=== PATIENT | female | born 1995 | race African-American/Black ===

== ENCOUNTER 2020-05-16 09:41 | Inpatient (IN) | payer MEDICAID ==
[~2020-05-16] VITALS: Ht 165.1 cm; Wt 65.2 kg
[2020-05-16 10:00] VITALS: BP_SYST 117; BP_SYST 140; BP_DIAS 70; BP_DIAS 88
[2020-05-16] MEDS ORDERED: fentaNYL 100 mcg/2 mL IV ONE (10:00)
[2020-05-16] MEDS ORDERED: Omnipaque-300 100ml vial INJ PRN (10:00)
--- NOTE | 2020-05-16 10:00 | Emergency Room Report ---
History of Present Illness General Chief Complaint: Abdominal Pain Source: Patient Present Illness HPI Patient is a 24-year-old female denies any significant past medical history who presents to the ER complaining of abdominal pain for 2 days. She complains of nausea but denies any vomiting. She also complains of some dysuria. She denies any diarrhea. She states that her last menstrual period was about 10 days ago. She denies any fever or chills. Allergies: Coded Allergies: No Known Allergies (Unverified , 05/16/20) COVID-19 Screening Contact w/high risk pt: No Experienced COVID-19 symptoms?: No COVID-19 Testing performed ACCOUNTANCY PROFESSOR: No Patient History Last Menstrual Period: 05/04/20 Now: No Reviewed Nursing Documentation: PMH: Agreed; PSxH: Agreed Nursing Documentation-PMH Past Medical History: No Stated History Review of Systems All Other Systems: negative except mentioned in HPI Physical Exam Vital Signs Date Time Temp Pulse Resp B/P (MAP) Pulse Ox O2 Delivery O2 Flow Rate FiO2 05/16/20 09:54 97.5 78 18 117/70 (86) 98 Room Air Sp02 EP Interpretation: reviewed, normal General Appearance: alert, GCS 15, non-toxic, mild distress Head: normocephalic, atraumatic Eyes: bilateral eye normal inspection, bilateral eye PERRL ENT: hearing grossly normal, normal pharynx, no angioedema, normal voice Neck: full range of motion, supple/symm/no masses Respiratory: normal breath sounds, no respiratory distress, no accessory muscle use Cardiovascular #1: regular rate, rhythm Gastrointestinal: soft, no guarding, no rebound, other - Periumbilical tenderness to palpation Rectal: deferred Genitourinary: no CVA tenderness Musculoskeletal: moves extm spontaneously Neurologic: feeder loader III-XII nml as tested, oriented x3 Psychiatric: no suicidal/homicidal ideation Skin: no rash Lymphatic: no adenopathy Medical Decision Making Diagnostic Impression: Primary Impression: Acute appendicitis Additional Impression: UTI (urinary tract infection) ER Course Patient reevaluated at 10:40 AM. Patient has been given 1 L of IV fluids, 50 mcg of IV fentanyl, 20 mg of IV Pepcid and 4 mg of IV Zofran. She states that her pain has improved. She looks much more comfortable. UA is positive. I have ordered for 1 g of Rocephin. Patient is pending CT abdomen pelvis. CT demonstrates "Appendix is borderline in caliber, measuring up to 7 mm. Distal fecalith. No clear periappendiceal inflammatory changes, but there is little adjacent fat to illustrate such changes. Overall, exam is equivocal for appendicitis." Paging Dr. Wade who is on-call for general surgery. I spoke with the surgeon he states that he recommends observing the patient. I have ordered for Invanz and preop the patient. I updated the patient on all of our ER findings and plan at 11:50 AM. Patient is amenable to admission. Dr. donohue consult on the patient in the emergency room. Patient is being admitted to Laboratory Tests Test 05/16/20 10:00 White Blood Count 19.1 K/UL (4.8-10.8) H Red Blood Count 4.45 M/UL (4.20-5.40) Hemoglobin 10.1 G/DL (12.0-16.0) L Hematocrit 33.3 % (37.0-47.0) L Mean Corpuscular Volume 75 FL (80-99) L Mean Corpuscular Hemoglobin 22.8 PG (27.0-31.0) L Mean Corpuscular Hemoglobin Concent 30.5 G/DL (32.0-36.0) L Red Cell Distribution Width 16.4 % (11.6-14.8) H Platelet Count 292 K/UL (150-450) Mean Platelet Volume 7.8 FL (6.5-10.1) Neutrophils (%) (Auto) % (45.0-75.0) Lymphocytes (%) (Auto) % (20.0-45.0) Monocytes (%) (Auto) % (1.0-10.0) Eosinophils (%) (Auto) % (0.0-3.0) Basophils (%) (Auto) % (0.0-2.0) Differential Total Cells Counted 100 Neutrophils % (Manual) 80 % (45-75) H Lymphocytes % (Manual) 9 % (20-45) L Monocytes % (Manual) 9 % (1-10) Eosinophils % (Manual) 2 % (0-3) Basophils % (Manual) 0 % (0-2) Band Neutrophils 0 % (0-8) Platelet Estimate Adequate Platelet Morphology Normal Hypochromasia 1+ Anisocytosis 1+ Microcytosis 1+ Urine Color Yellow Urine Appearance Slightly cloudy Urine pH 6 (4.5-8.0) Urine Specific [place] 1.020 (1.005-1.035) Urine Protein 2+ (NEGATIVE) H Urine Glucose (UA) Negative (NEGATIVE) Urine Ketones 4+ (NEGATIVE) H Urine Blood 2+ (NEGATIVE) H Urine Nitrite Negative (NEGATIVE) Urine Bilirubin Negative (NEGATIVE) Urine Urobilinogen Normal MG/DL (0.0-1.0) Urine Leukocyte Esterase 3+ (NEGATIVE) H Urine RBC 0-2 /HPF (0 - 2) Urine WBC 15-20 /HPF (0 - 2) H Urine Squamous Epithelial Cells Moderate /LPF (NONE/OCC) H Urine Bacteria Few /HPF (NONE) Urine HCG, Qualitative Negative (NEGATIVE) Sodium Level 135 MMOL/L (136-145) L Potassium Level 3.5 MMOL/L (3.5-5.1) Chloride Level 101 MMOL/L (98-107) Carbon Dioxide Level 24 MMOL/L (21-32) Anion Gap 10 mmol/L (5-15) Blood Urea Nitrogen 9 mg/dL (7-18) Creatinine 0.9 MG/DL (0.55-1.30) Estimated Glomerular Filtration Rate > 60 mL/min (>60) Glucose Level 69 MG/DL (74-106) L Calcium Level 9.7 MG/DL (8.5-10.1) Magnesium Level 2.0 MG/DL (1.8-2.4) Total Bilirubin 0.6 MG/DL (0.2-1.0) Aspartate Amino Transferase (AST) 20 U/L (15-37) Alanine Aminotransferase (ALT) 16 U/L (12-78) Alkaline Phosphatase 85 U/L (46-116) Total Protein 8.3 G/DL (6.4-8.2) H Albumin 3.7 G/DL (3.4-5.0) Globulin 4.6 g/dL Albumin/Globulin Ratio 0.8 (1.0-2.7) L Lipase 67 U/L (73-393) L Urine Opiates Screen Negative (NEGATIVE) Urine Barbiturates Screen Negative (NEGATIVE) Phencyclidine (PCP) Screen Negative (NEGATIVE) Urine Amphetamines Screen Negative (NEGATIVE) Urine Benzodiazepines Screen Negative (NEGATIVE) Urine Cocaine Screen Negative (NEGATIVE) Urine Marijuana (THC) Screen Positive (NEGATIVE) H EKG Diagnostic Results Troponin ordered: No - Preop EKG Time: 12:16 EP Interpretation: Radha Meyer MD Rate: normal - 88 bpm Rhythm: NSR ST Segments: no acute changes ASA given to the pt in ED: No Chest X-Ray Diagnostic Results Chest X-Ray Diagnostic Results : Chest X-Ray Ordered: Yes # of Views/Limited/Complete: 1 View Indication: Other - pre-op EP Interpretation: Yes Interpretation: no consolidation, no effusion, no pneumothorax, no acute cardiopulmonary disease Impression: No acute disease Electronically Signed by: Radha Meyer MD Last Vital Signs Date Time Temp Pulse Resp B/P (MAP) Pulse Ox O2 Delivery O2 Flow Rate FiO2 05/16/20 09:58 78 18 Room Air 05/16/20 09:54 97.5 117/70 (86) 98 Disposition: ADMITTED INPATIENT Condition: Critical Physician Consult: Dr. Lizbeth MD at 130pm Additional Instructions: Please note that this report is being documented using [employer] technology. This can lead to erroneous entry secondary to incorrect interpretation by the dictating instrument. Radha Meyer M.D. May 16, 2020 10:00
--- NOTE | 2020-05-16 10:01 | NUR ---
came to er complaints of abdominal pain x 2 days with nausea no vomiting or diarhea
[2020-05-16 10:20] LABS: APPEARANCE,URINE SLIGHTLY CLOUDY; BILIRUBIN, URINE NEGATIVE (NEGATIVE); GLUCOSE, URINE (UA) NEGATIVE (NEGATIVE); KETONES,URINE 4+ (NEGATIVE); LEUKOCYTE ESTERASE ,URINE 3+ (NEGATIVE); NITRITE,URINE NEGATIVE (NEGATIVE); PH,URINE 6 (4.5-8.0); PROTEIN,URINE 2+ (NEGATIVE); UROBILINOGEN,URINE NORMAL MG/DL (0.0-1.0)
[2020-05-16 10:24] LABS: ANION GAP 10 mmol/L (5-15); BLOOD UREA NITROGEN 9 mg/dL (7-18); CALCIUM 9.7 MG/DL (8.5-10.1); CARBON DIOXIDE 24 MMOL/L (21-32); CHLORIDE 101 MMOL/L (98-107); CREATININE 0.9 MG/DL (0.55-1.30); POTASSIUM 3.5 MMOL/L (3.5-5.1); SODIUM 135 MMOL/L (136-145)
[2020-05-16 10:28] LABS: COLOR,URINE YELLOW
[2020-05-16 10:30] LABS: ALANINE AMINOTRANSFERASE 16 U/L (12-78); ALBUMIN 3.7 G/DL (3.4-5.0); ALBUMIN/GLOBULIN RATIO 0.8 (1.0-2.7); ALKALINE PHOSPHATASE 85 U/L (46-116); ASPARTATE AMINO TRANSFERASE 20 U/L (15-37); BILIRUBIN,TOTAL 0.6 MG/DL (0.2-1.0)
[2020-05-16 10:37] LABS: HEMATOCRIT 33.3 % (37.0-47.0); HEMOGLOBIN 10.1 G/DL (12.0-16.0); MEAN CORPUSCULAR VOLUME 75 FL (80-99); PLATELET COUNT 292 K/UL (150-450); RED BLOOD COUNT 4.45 M/UL (4.20-5.40); RED CELL DISTRIBUTION WIDTH 16.4 % (11.6-14.8); WHITE BLOOD COUNT 19.1 K/UL (4.8-10.8)
[2020-05-16] MEDS ORDERED: cefTRIAXone 1 GM in NS 55 ML IVPB ONE (10:45)
--- NOTE | 2020-05-16 11:33 | Diagnostic Imaging Report ---
EXAM: CT Abdomen and Pelvis With Intravenous Contrast CLINICAL HISTORY: PAIN TECHNIQUE: Axial computed tomography images of the abdomen and pelvis with intravenous contrast. CTDI is 3.8 mGy and DLP is 200.4 mGy-cm. One or more of the following dose reduction techniques were used: automated exposure control, adjustment of the mA and/or kV according to patient size, use of iterative reconstruction technique. COMPARISON: No relevant prior studies available. FINDINGS: Lung bases: Unremarkable. No mass. No consolidation. ABDOMEN: Liver: Unremarkable. No mass. Gallbladder and bile ducts: Unremarkable. No calcified stones. No ductal dilation. Pancreas: Unremarkable. No mass. No ductal dilation. Spleen: Unremarkable. No splenomegaly. Adrenals: Unremarkable. No mass. Kidneys and ureters: Upper pole left renal hypodensities that are too small to characterize, but most likely reflect cysts. No hydronephrosis. Stomach and bowel: No obstruction or perforation. PELVIS: Appendix: Borderline in caliber measuring up to 7 mm in diameter. Distal fecalith. No clear periappendiceal inflammatory changes, but there is little adjacent fat to illustrate such changes. Bladder: Unremarkable. No mass. Reproductive: 1.1 cm cystic lesion to the rightward vaginal introitus, consistent with Bartholin cyst. ABDOMEN and PELVIS: Intraperitoneal space: Unremarkable. No free air. No significant fluid collection. Bones/joints: No acute fracture. No dislocation. Soft tissues: Unremarkable. Vasculature: Unremarkable. No abdominal aortic aneurysm. Lymph nodes: Unremarkable. No enlarged lymph nodes. IMPRESSION: Appendix is borderline in caliber, measuring up to 7 mm. Distal fecalith. No clear periappendiceal inflammatory changes, but there is little adjacent fat to illustrate such changes. Overall, exam is equivocal for appendicitis. Upper pole left renal hypodensities are too small to characterize, but most likely reflect cysts. No hydronephrosis. 1.1 cm Bartholin cyst to the rightward vaginal introitus.
[2020-05-16] MEDS ORDERED: Ertapenem 1 GM in NS 55 ML IV ONE (11:45)
--- NOTE | 2020-05-16 12:33 | Diagnostic Imaging Report ---
EXAM: XR Chest, 1 View CLINICAL HISTORY: PREOP TECHNIQUE: Frontal view of the chest. COMPARISON: No relevant prior studies available. FINDINGS: Lungs: Unremarkable. No consolidation. Pleural space: Unremarkable. No pneumothorax. Heart: Unremarkable. No cardiomegaly. Mediastinum: Unremarkable. Bones/joints: Unremarkable. IMPRESSION: No evidence of acute pulmonary disease.
[2020-05-16 13:15] LABS: INR 1.2 (0.9-1.1)
--- NOTE | 2020-05-16 13:35 | Consultation ---
History of Present Illness General Date patient seen: May 16, 2020 Reason for Hospitalization: Abdominal Pain Present Illness HPI 24F acute onset of lower abdominal periumbilical pelvic pain starting yesterday with associated nausea. no emesis. normal bm. +flatus. pain yesterday 8/10 today 6.5/10. feels better. but given persistent came in for evaluation. noted to have midline lower abdomen pain, LLQ and RLQ pain. wbc 19k. uti. ct with equivocal appendicitis 7mm. no inflammation or stranding noted. fecalith. surgery called to evaluate. seen in ED Allergies: Coded Allergies: No Known Allergies (Unverified , 05/16/20) COVID-19 Screening Contact w/high risk pt: No Experienced COVID-19 symptoms?: No Patient History History Provided By: Patient, Medical Record, PMD Healthcare decision maker Resuscitation status Advanced Directive on File Past Medical/Surgical History Past Medical/Surgical History: (1) UTI (urinary tract infection) (2) Acute appendicitis Review of Systems Review of Symptoms General ROS: no weight loss or fever Psychological ROS: no depression or mood changes, no memory loss Ophthalmic ROS: no visual changes or eye irritation ENT ROS: no nasal congestion, hearing loss, dizziness Allergy and Immunology ROS: no allergic symptoms or urticaria Hematological and Lymphatic ROS: no swollen glands, unusual bleeding or bruising Endocrine ROS: no polyuria, polydipsia, weight changes, temperature intolerance Respiratory ROS: no cough, shortness of breath, or wheezing Cardiovascular ROS: no chest pain or dyspnea on exertion Gastrointestinal ROS: +lower abdominal pain, no bright red blood in stool. Musculoskeletal ROS: no myalgias or arthralgias Neurological ROS: no TIA or stroke symptoms Dermatological ROS: no new or changing skin lesions, rashes or pruritis Physical Exam Physical Exam General appearance: alert, cooperative, no distress, appears stated age Head: Normocephalic, without obvious abnormality, atraumatic Eyes: conjunctivae/corneas clear. PERRL, EOM's intact. Fundi benign Throat: Lips, mucosa, and tongue normal. Teeth and gums normal Neck: supple, symmetrical, trachea midline, no adenopathy, thyroid: not enlarged, symmetric, no tenderness/mass/nodules, no carotid bruit and no JVD Lungs: clear to auscultation bilaterally Heart: regular rate and rhythm, S1, S2 normal, no murmur, click, rub or gallop Abdomen: soft, lower abdominal discomfort, RLQ, midline, LLQ-tender. Bowel sounds normal. No masses, no organomegaly Extremities: extremities normal, atraumatic, no cyanosis or edema Pulses: 2+ and symmetric Skin: Skin color, texture, turgor normal. No rashes or lesions Neurologic: Grossly normal Last 24 Hour Vital Signs Date Time Temp Pulse Resp B/P (MAP) Pulse Ox O2 Delivery O2 Flow Rate FiO2 05/16/20 10:00 97.5 18 117/70 98 Room Air 05/16/20 10:00 99.3 100 18 140/88 100 Room Air 05/16/20 09:58 78 18 Room Air 05/16/20 09:54 97.5 78 18 117/70 (86) 98 Room Air Laboratory Tests Test 05/16/20 10:00 White Blood Count 19.1 K/UL (4.8-10.8) H Red Blood Count 4.45 M/UL (4.20-5.40) Hemoglobin 10.1 G/DL (12.0-16.0) L Hematocrit 33.3 % (37.0-47.0) L Mean Corpuscular Volume 75 FL (80-99) L Mean Corpuscular Hemoglobin 22.8 PG (27.0-31.0) L Mean Corpuscular Hemoglobin Concent 30.5 G/DL (32.0-36.0) L Red Cell Distribution Width 16.4 % (11.6-14.8) H Platelet Count 292 K/UL (150-450) Mean Platelet Volume 7.8 FL (6.5-10.1) Neutrophils (%) (Auto) % (45.0-75.0) Lymphocytes (%) (Auto) % (20.0-45.0) Monocytes (%) (Auto) % (1.0-10.0) Eosinophils (%) (Auto) % (0.0-3.0) Basophils (%) (Auto) % (0.0-2.0) Differential Total Cells Counted 100 Neutrophils % (Manual) 80 % (45-75) H Lymphocytes % (Manual) 9 % (20-45) L Monocytes % (Manual) 9 % (1-10) Eosinophils % (Manual) 2 % (0-3) Basophils % (Manual) 0 % (0-2) Band Neutrophils 0 % (0-8) Platelet Estimate Adequate Platelet Morphology Normal Hypochromasia 1+ Anisocytosis 1+ Microcytosis 1+ Prothrombin Time 13.0 SEC (9.30-11.50) H Prothromb Time International Ratio 1.2 (0.9-1.1) H Activated Partial Thromboplast Time 32 SEC (23-33) Urine Color Yellow Urine Appearance Slightly cloudy Urine pH 6 (4.5-8.0) Urine Specific [place] 1.020 (1.005-1.035) Urine Protein 2+ (NEGATIVE) H Urine Glucose (UA) Negative (NEGATIVE) Urine Ketones 4+ (NEGATIVE) H Urine Blood 2+ (NEGATIVE) H Urine Nitrite Negative (NEGATIVE) Urine Bilirubin Negative (NEGATIVE) Urine Urobilinogen Normal MG/DL (0.0-1.0) Urine Leukocyte Esterase 3+ (NEGATIVE) H Urine RBC 0-2 /HPF (0 - 2) Urine WBC 15-20 /HPF (0 - 2) H Urine Squamous Epithelial Cells Moderate /LPF (NONE/OCC) H Urine Bacteria Few /HPF (NONE) Urine HCG, Qualitative Negative (NEGATIVE) Sodium Level 135 MMOL/L (136-145) L Potassium Level 3.5 MMOL/L (3.5-5.1) Chloride Level 101 MMOL/L (98-107) Carbon Dioxide Level 24 MMOL/L (21-32) Anion Gap 10 mmol/L (5-15) Blood Urea Nitrogen 9 mg/dL (7-18) Creatinine 0.9 MG/DL (0.55-1.30) Estimat Glomerular Filtration Rate > 60 mL/min (>60) Glucose Level 69 MG/DL (74-106) L Calcium Level 9.7 MG/DL (8.5-10.1) Magnesium Level 2.0 MG/DL (1.8-2.4) Total Bilirubin 0.6 MG/DL (0.2-1.0) Aspartate Amino Transf (AST/SGOT) 20 U/L (15-37) Alanine Aminotransferase (ALT/SGPT) 16 U/L (12-78) Alkaline Phosphatase 85 U/L (46-116) Total Protein 8.3 G/DL (6.4-8.2) H Albumin 3.7 G/DL (3.4-5.0) Globulin 4.6 g/dL Albumin/Globulin Ratio 0.8 (1.0-2.7) L Lipase 67 U/L (73-393) L Urine Opiates Screen Negative (NEGATIVE) Urine Barbiturates Screen Negative (NEGATIVE) Phencyclidine (PCP) Screen Negative (NEGATIVE) Urine Amphetamines Screen Negative (NEGATIVE) Urine Benzodiazepines Screen Negative (NEGATIVE) Urine Cocaine Screen Negative (NEGATIVE) Urine Marijuana (THC) Screen Positive (NEGATIVE) H Height (Feet): 5 Height (Inches): 5.00 Weight (Pounds): 160 Medications Current Medications Medications (Trade) Dose Ordered Sig/Yemi Route PRN Reason Start Time Stop Time Status Last Admin Dose Admin Iohexol (OMNIPAQUE-300 100ml) 100 ml NOW PRN INJ Radiology Procedure 05/16/20 10:00 05/18/20 09:59 Assessment/Plan Problem List: (1) UTI (urinary tract infection) ICD Codes: N39.0 - Urinary tract infection, site not specified SNOMED: 65221745 (2) Acute appendicitis Assessment & Plan: 24F possible appendicitis. afebrile, HD stable. wbc 19k. uti. LLQ, midline lower abd, and RLQ discomfort on deep palpation no peritonitis. CT reviewed. long discussion with patient at bedside. clinical condition, labs, and ct reviewed. exam reviewed. when standing and moving no pain. no peritoneal signs. possible early acute appy but not definitive. discussed diagnostic laparoscopy with patient discussed serial abdominal exams decided to monitor clinically for next 24h. if not resolved will plan for diagnostic laparoscopy possible appendectomy. if resolved will monitor non operatively thank you will follow with recs and exam am labs ICD Codes: K35.80 - Unspecified acute appendicitis SNOMED: 81509590 Nabeel Wade May 16, 2020 13:35
[2020-05-16 14:59] VITALS: BP 107/54
--- NOTE | 2020-05-16 15:03 | NUR ---
RT given to pt
--- NOTE | 2020-05-16 15:47 | NUR ---
pt resting comfortably, npo after midnight
--- NOTE | 2020-05-16 20:15 | NUR ---
NURSE NOTES: Received pt & bedside report from GIAN Otoole. Pt in [facility], ambulatory, a&ox4, in room air. No s/s of acute distress & c/o 7/10 pain. WIll give PRN pain med when due. Pt belongings checked & accounted for. Oriented pt to hospital room & facility. Skin assessment done, skin intact. IV site intact & S/L'd. Will connect to IVF. All questions answered. All needs met. Made pt comfortable. Plan of care discussed. Dr. Wade already entered admission orders.
[2020-05-16 20:30] VITALS: BP 114/64
[2020-05-16] MEDS: Morphine Sulfate 2mg/ml Inj(IV/IM USE ONLY) IVP PRN (21:37)
[2020-05-17] VITALS: BP 110/68
[2020-05-17 04:00] VITALS: BP 116/62
[2020-05-17] MEDS: Morphine Sulfate 2mg/ml Inj(IV/IM USE ONLY) IVP PRN (06:23)
[2020-05-17 06:35] LABS: BASOPHILS % (AUTO) 1.3 % (0.0-2.0); EOSINOPHILS % (AUTO) 1.9 % (0.0-3.0); HEMATOCRIT 28.4 % (37.0-47.0); HEMOGLOBIN 8.5 G/DL (12.0-16.0); LYMPHOCYTES % (AUTO) 4.9 % (20.0-45.0); MEAN CORPUSCULAR VOLUME 76 FL (80-99); MONOCYTES % (AUTO) 11.3 % (1.0-10.0); NEUTROPHILS % (AUTO) 80.7 % (45.0-75.0); PLATELET COUNT 220 K/UL (150-450); RED BLOOD COUNT 3.73 M/UL (4.20-5.40); RED CELL DISTRIBUTION WIDTH 16.2 % (11.6-14.8); WHITE BLOOD COUNT 8.7 K/UL (4.8-10.8)
--- NOTE | 2020-05-17 06:39 | NUR ---
NURSE HAND-OFF: Important Events on Shift:new admit,pain management (morphine x2) Patient Status: stable Diet: NPO Pending Orders: Pending Results/Labs: Pending MD notification: Latest Vital Signs: Temperature 98.4 , Pulse 87 , B/P 116 /62 , Respiratory Rate 15 , O2 SAT 98 , Room Air, O2 Flow Rate . Vital Sign Comment: Latest Rodriguez Fall Score: 35 Fall Risk: Medium Risk Safety Measures: Call light Within Reach, Bed Alarm , Side Rails Side Rails x2, Bed position Low and Locked. Fall Precautions: Patient Fall Education Report given to Kady Duran LVN.
[2020-05-17 07:07] LABS: ALANINE AMINOTRANSFERASE 13 U/L (12-78); ALBUMIN 2.9 G/DL (3.4-5.0); ALBUMIN/GLOBULIN RATIO 0.8 (1.0-2.7); ALKALINE PHOSPHATASE 62 U/L (46-116); ANION GAP 9 mmol/L (5-15); ASPARTATE AMINO TRANSFERASE 16 U/L (15-37); BILIRUBIN,TOTAL 0.4 MG/DL (0.2-1.0); BLOOD UREA NITROGEN 6 mg/dL (7-18); CALCIUM 8.2 MG/DL (8.5-10.1); CARBON DIOXIDE 24 MMOL/L (21-32); CHLORIDE 108 MMOL/L (98-107); CREATININE 0.8 MG/DL (0.55-1.30); POTASSIUM 3.8 MMOL/L (3.5-5.1); SODIUM 141 MMOL/L (136-145)
[2020-05-17 08:00] VITALS: BP 128/68
--- NOTE | 2020-05-17 08:00 | NUR ---
NURSE NOTES: RECEIVED PATIENT A/A/OX4. AMBULATES WITH STEADY GAIT. NPO PER MD ORDER. IVF INFUSING WELL TO RFA 22G. REMOVED LEFT AC 20G, C/O PAIN ON THE SITE. PATIENT APPEARED CALM AND COMFORTABLE. NO ACUTE RESP DISTRESS NOTED. KEPT BED IN THE LOWEST POSITION. SIDERAILS ARE UPX2. CALL LIGHT IS WITHIN REACH. WILL CONT TO MONITOR.
[2020-05-17] MEDS: Piperacillin/Tazobactam 3.375 GM in NS 110 ML IVPB SCH ×2 (09:26→18:00)
--- NOTE | 2020-05-17 10:51 | Surgery Progress Note ---
Surgery Progress Note Subjective Additional Comments wbc resolved seen by GI exam with pelvic pain c/o vaginal discharge yellow clumps no n/v/f/c Objective Last 24 Hour Vital Signs Date Time Temp Pulse Resp B/P (MAP) Pulse Ox O2 Delivery O2 Flow Rate FiO2 05/17/20 09:00 Room Air 05/17/20 08:00 99.7 85 20 128/68 (88) 99 05/17/20 04:00 98.4 87 15 116/62 (80) 98 05/17/20 00:00 98.2 90 16 110/68 (82) 99 05/16/20 22:13 Room Air 05/16/20 20:30 98.1 96 17 114/64 (81) 99 05/16/20 14:59 80 18 107/54 100 Room Air I&O Intake and Output 05/16/20 05/17/20 19:00 07:00 Intake Total 675 ml Balance 675 ml Intake Oral 0 ml IV Total 675 ml Other 0 ml # Voids 2 Cardiovascular: RSR Respiratory: clear Abdomen: soft, flat, tenderness - pelvic and b/l lower quadrants , present bowel sounds, non-distended Extremities: no edema, no tenderness, no cyanosis Laboratory Tests Test 05/17/20 05:50 White Blood Count 8.7 K/UL (4.8-10.8) # Red Blood Count 3.73 M/UL (4.20-5.40) L Hemoglobin 8.5 G/DL (12.0-16.0) L Hematocrit 28.4 % (37.0-47.0) L Mean Corpuscular Volume 76 FL (80-99) L Mean Corpuscular Hemoglobin 22.7 PG (27.0-31.0) L Mean Corpuscular Hemoglobin Concent 29.8 G/DL (32.0-36.0) L Red Cell Distribution Width 16.2 % (11.6-14.8) H Platelet Count 220 K/UL (150-450) Mean Platelet Volume 8.7 FL (6.5-10.1) Neutrophils (%) (Auto) 80.7 % (45.0-75.0) H Lymphocytes (%) (Auto) 4.9 % (20.0-45.0) L Monocytes (%) (Auto) 11.3 % (1.0-10.0) H Eosinophils (%) (Auto) 1.9 % (0.0-3.0) Basophils (%) (Auto) 1.3 % (0.0-2.0) Erythrocyte Sedimentation Rate 48 MM/HR (0-20) H Sodium Level 141 MMOL/L (136-145) Potassium Level 3.8 MMOL/L (3.5-5.1) Chloride Level 108 MMOL/L (98-107) H Carbon Dioxide Level 24 MMOL/L (21-32) Anion Gap 9 mmol/L (5-15) Blood Urea Nitrogen 6 mg/dL (7-18) L Creatinine 0.8 MG/DL (0.55-1.30) Estimat Glomerular Filtration Rate > 60 mL/min (>60) Glucose Level 78 MG/DL (74-106) Calcium Level 8.2 MG/DL (8.5-10.1) L Total Bilirubin 0.4 MG/DL (0.2-1.0) Aspartate Amino Transf (AST/SGOT) 16 U/L (15-37) Alanine Aminotransferase (ALT/SGPT) 13 U/L (12-78) Alkaline Phosphatase 62 U/L (46-116) C-Reactive Protein, Quantitative 12.9 mg/dL (0.00-0.90) H Total Protein 6.6 G/DL (6.4-8.2) Albumin 2.9 G/DL (3.4-5.0) L Globulin 3.7 g/dL Albumin/Globulin Ratio 0.8 (1.0-2.7) L Plan Problems: (1) UTI (urinary tract infection) (2) Acute appendicitis Assessment & Plan: 24F possible appendicitis. afebrile, HD stable. wbc 19k. uti. LLQ, midline lower abd, and RLQ discomfort on deep palpation no peritonitis. CT reviewed. long discussion with patient at bedside. clinical condition, labs, and ct reviewed. exam reviewed. when standing and moving no pain. no peritoneal signs. possible early acute appy but not definitive. discussed diagnostic laparoscopy with patient discussed serial abdominal exams decided to monitor clinically for next 24h. if not resolved will plan for diagnostic laparoscopy possible appendectomy. if resolved will monitor non o peratively thank you will follow with recs and exam am labs possible PID Transfer Worker consult discussed with mom and patient at bedside. offered diagnostic laparoscopy vs medical management. they would like to hold off on surgery to see how she does with abx okay for diet Nabeel Sy May 17, 2020 10:51
[2020-05-17 12:06] VITALS: BP 110/65
[2020-05-17 15:55] VITALS: BP 109/61
--- NOTE | 2020-05-17 19:07 | NUR ---
NURSE HAND-OFF: Important Events on Shift:[tolerated clear liquid; no c/o pain/discomfort noted.] Patient Status: [stable] Diet: [clears] Pending Orders: [labs; npo after mn tonite] Pending Results/Labs:[am ] Pending MD notification:[] Latest Vital Signs: Temperature 98.2 , Pulse 73 , B/P 109 /61 , Respiratory Rate 18 , O2 SAT 98 , Room Air, O2 Flow Rate . Vital Sign Comment: [] Latest Rodriguez Fall Score: 35 Fall Risk: Medium Risk Safety Measures: Call light Within Reach, Bed Alarm Zone 1, Side Rails Side Rails x2, Bed position Low and Locked. Fall Precautions: Yellow Socks Yellow Gown Door Sign Patient Fall Education Report given to [michael].
--- NOTE | 2020-05-17 19:30 | NUR ---
NURSE NOTES: Received report & pt from JANICE Hillman. Pt in bed, a&ox4, in room air. No s/s of acute distress & c/o 3/10 pain. IV site intact with IVF running as ordered. Pt made aware of NPO status @ midnight & pt verbalized understanding. Plan of care discussed.
[2020-05-17 20:00] VITALS: BP 110/69
--- NOTE | 2020-05-17 20:32 | General Progress Note ---
Subjective Allergies: Coded Allergies: No Known Allergies (Unverified , 05/16/20) Objective Last 24 Hour Vital Signs Date Time Temp Pulse Resp B/P (MAP) Pulse Ox O2 Delivery O2 Flow Rate FiO2 05/17/20 15:55 98.2 73 18 109/61 (77) 98 05/17/20 12:06 98.1 69 20 110/65 (80) 99 05/17/20 09:00 Room Air 05/17/20 08:00 99.7 85 20 128/68 (88) 99 05/17/20 04:00 98.4 87 15 116/62 (80) 98 05/17/20 00:00 98.2 90 16 110/68 (82) 99 05/16/20 22:13 Room Air Intake and Output 05/16/20 05/17/20 19:00 07:00 Intake Total 675 ml Balance 675 ml Intake Oral 0 ml IV Total 675 ml Other 0 ml # Voids 2 Laboratory Tests 05/17/20 05:50: White Blood Count 8.7#, Red Blood Count 3.73L, Hemoglobin 8.5L, Hematocrit 28.4L , Mean Corpuscular Volume 76L, Mean Corpuscular Hemoglobin 22.7L, Mean Corpuscular Hemoglobin Concent 29.8L, Red Cell Distribution Width 16.2H, Platelet Count 220, Mean Platelet Volume 8.7, Neutrophils (%) (Auto) 80.7H, Lymphocytes (%) (Auto) 4.9L, Monocytes (%) (Auto) 11.3H, Eosinophils (%) (Auto) 1.9, Basophils (%) (Auto) 1.3, Erythrocyte Sedimentation Rate 48H, Sodium Level 141, Potassium Level 3.8, Chloride Level 108H, Carbon Dioxide Level 24, Anion Gap 9, Blood Urea Nitrogen 6L, Creatinine 0.8, Estimat Glomerular Filtration Rate > 60, Glucose Level 78, Calcium Level 8.2L, Total Bilirubin 0.4, Aspartate Amino Transf (AST/SGOT) 16, Alanine Aminotransferase (ALT/SGPT) 13, Alkaline Phosphatase 62, C-Reactive Protein, Quantitative 12.9H, Total Protein 6.6, Albumin 2.9L, Globulin 3.7, Albumin/Globulin Ratio 0.8L Height (Feet): 5 Height (Inches): 5.00 Weight (Pounds): 160 Assessment/Plan Assessment/Plan: Assessment - 3 days of abd pain, leukocytosis - diffuse abd TTP with mild peritoneal signs, most TTP R>L lower abd - vaginal discharge - PID vs appy Recommendations - Continue Abx - [employer] consult - surgical follow up - check urine GC/Chlamydia RNA Kristofer Liz MD May 17, 2020 20:32
[2020-05-18] VITALS: BP 114/55
[2020-05-18] MEDS: Piperacillin/Tazobactam 3.375 GM in NS 110 ML IVPB SCH ×4 (00:07→23:59)
--- NOTE | 2020-05-18 00:59 | History and Physical Report ---
DATE OF ADMISSION: 05/16/2020 HISTORY OF PRESENT ILLNESS: The patient is here for abdominal pain for 3 days, vaginal discharge, chills, nausea, headache, and leukocytosis. Dr. Wade has seen the patient in the ER and does not believe that the patient needs emergent surgery. The patient's family also wants us to get a gynecological evaluation before proceeding where the team believes that the patient might have PID. Dr. Joy' team has been consulted for that. The patient also has some chills and nausea and headaches. Denies diarrhea. She has lower abdominal pain. Denies headache. Denies shortness of breath. Denies cough. PAST MEDICAL HISTORY: Significant for GERD. PAST SURGICAL HISTORY: None. MEDICATIONS: None. FAMILY HISTORY: Noncontributory. SOCIAL HISTORY: Denies history of alcohol abuse. Denies history of drug abuse. Has a history of marijuana abuse. MEDICATIONS: None. FAMILY HISTORY: Noncontributory. REVIEW OF SYSTEMS: HEENT: Denies headaches. RESPIRATORY: Denies shortness of breath. Denies cough. CARDIOVASCULAR: Denies chest pain. Denies orthopnea. GASTROINTESTINAL: Reports abdominal pain for 3 days. Vaginal discharge. EXTREMITIES: Denies pain in the lower extremities. CENTRAL NERVOUS SYSTEM: Denies change in speech pattern. PHYSICAL EXAMINATION: VITAL SIGNS: Basically, temperature is 98.2, pulse is 90, blood pressure is 110/68. HEENT: PERRLA. NECK: Supple. No lymphadenopathy. CHEST: Clear to auscultation. CARDIOVASCULAR: Regular rate and rhythm. No murmurs or extra sounds. GASTROINTESTINAL: Soft. Lower abdomen tenderness, but no rebound. Abdomen is soft. No organomegaly. EXTREMITIES: No edema. Moves all four extremities. Sensory intact to light touch. Reflexes equal on both sides. LABORATORY DATA: WBC of 19.1, hemoglobin 10, platelets of 292. Sodium 135, potassium of 3.5, BUN of 9, creatinine 0.9. ASSESSMENT AND PLAN: Rule out appendicitis. The surgeon wants to monitor at this point. Gastroenterology as well as family also want to rule out PID. Dr. Joy has been consulted as well as Dr. Liz's team has been consulted as well as Dr. Wade and Dr. Kareem Schreiber. Antibiotics per Dr. Kareem Schreiber. We will monitor the patient closely. Not in any acute distress at this point. She is lying comfortably in bed. Bud Nieves M.D. DR: SARAHI JOB#: [id number] CC:
--- NOTE | 2020-05-18 01:58 | NUR ---
NURSE NOTES: Urine specimen sent down to lab for gonorrhea & chlamydia.
--- NOTE | 2020-05-18 02:14 | Consultation ---
DATE OF CONSULTATION: 05/17/2020 GASTROENTEROLOGY CONSULTATION CONSULTING PHYSICIAN: Kristofer iLz M.D. CHIEF COMPLAINT: I was asked to see this patient by Dr. Bud Nieves for evaluation of abdominal pain. HISTORY OF PRESENT ILLNESS: The patient is a 24-year-old woman, who comes in with a 3-day history of central abdominal pain, with some nausea, but no vomiting. There is no diarrhea or no constipation. The patient's last menstrual cycle was about 7 to 10 days ago and she does complain of vaginal discharge that is yellow. She had a CT scan in the emergency room, which showed an apparent intact appendix, which is mildly dilated and equivocal for appendicitis. The initial white count was elevated, but overnight antibiotics has been much improved. She feels better. The patient has received some pain medications. PAST MEDICAL HISTORY: Otherwise negative. HOME MEDICATIONS: None. FAMILY HISTORY: Positive for appendicitis in mother and grandfather. SOCIAL HISTORY: The patient is single. She does not drink alcohol or smoke. ALLERGIES: Noted. REVIEW OF SYSTEMS: Otherwise negative. PHYSICAL EXAMINATION: GENERAL: A well-developed, well-nourished woman, in no distress HEENT: Normocephalic and atraumatic. Sclerae are anicteric. Oropharynx clear. NECK: Supple. CHEST: Clear to auscultation. CARDIOVASCULAR: Revealed a regular rate. ABDOMEN: Soft with diffuse abdominal tenderness, which was more in the pelvic area and more so in the right lower quadrant in the left lower quadrant. There was evidence of rebound tenderness as well as shaking tenderness consistent with mild peritonitis. EXTREMITIES: Revealed no edema. NEUROLOGIC: Nonfocal. LABORATORY DATA: Noted. ASSESSMENT: This patient presents with pelvic pain and tenderness with some peritoneal signs. Differential diagnosis in her scenario would include both appendicitis versus pelvic inflammatory disease. I have discussed my findings with a surgeon seen her again today in followup. In the meantime, she should be observed closely. I will also have Gynecology see her and send her urine for gonorrhea and chlamydia RNA. The antibiotics should be continued, and I will follow this patient with you. RECOMMENDATIONS: Per above discussion and per orders written in the chart. Thank you for asking me to participate in the care of this patient. Kristofer Liz M.D. DR: HAMMAD JOB#: [id number] CC: MARTIN
[2020-05-18 04:00] VITALS: BP 105/56
--- NOTE | 2020-05-18 06:38 | NUR ---
NURSE HAND-OFF: Important Events on Shift:urine speciment sent for gonorrhea/chlamydia Patient Status: stable Diet: NPO Pending Orders: Pending Results/Labs: Pending MD notification: Latest Vital Signs: Temperature 98.6 , Pulse 56 , B/P 105 /56 , Respiratory Rate 18 , O2 SAT 98 , Room Air, O2 Flow Rate . Vital Sign Comment: Latest Rodriguez Fall Score: 20 Fall Risk: Low Risk Safety Measures: Call light Within Reach, Bed Alarm Zone 1, Side Rails Side Rails x2, Bed position Low and Locked. Fall Precautions: Yellow Socks Yellow Gown Door Sign Patient Fall Education Report given to Edie William RN.
--- NOTE | 2020-05-18 06:40 | NUR ---
NURSE NOTES: Patient in stable condition, breathing even and unlabored, alert and oriented x4, bed in lowest and locked position, side rails up x2, call light within reach.
[2020-05-18 08:10] LABS: BASOPHILS % (AUTO) 2.1 % (0.0-2.0); EOSINOPHILS % (AUTO) 4.4 % (0.0-3.0); HEMOGLOBIN 8.4 G/DL (12.0-16.0); LYMPHOCYTES % (AUTO) 9.8 % (20.0-45.0); MEAN CORPUSCULAR VOLUME 74 FL (80-99); MONOCYTES % (AUTO) 18.3 % (1.0-10.0); NEUTROPHILS % (AUTO) 65.4 % (45.0-75.0); PLATELET COUNT 226 K/UL (150-450); RED BLOOD COUNT 3.76 M/UL (4.20-5.40); WHITE BLOOD COUNT 4.9 K/UL (4.8-10.8)
[2020-05-18 08:13] LABS: ALANINE AMINOTRANSFERASE 8 U/L (12-78); ALBUMIN 2.8 G/DL (3.4-5.0); ALBUMIN/GLOBULIN RATIO 0.7 (1.0-2.7); ALKALINE PHOSPHATASE 58 U/L (46-116); ANION GAP 10 mmol/L (5-15); ASPARTATE AMINO TRANSFERASE 16 U/L (15-37); BILIRUBIN,TOTAL 0.2 MG/DL (0.2-1.0); BLOOD UREA NITROGEN 5 mg/dL (7-18); CALCIUM 8.8 MG/DL (8.5-10.1); CARBON DIOXIDE 23 MMOL/L (21-32); CHLORIDE 108 MMOL/L (98-107); CREATININE 0.7 MG/DL (0.55-1.30); POTASSIUM 4.4 MMOL/L (3.5-5.1); SODIUM 141 MMOL/L (136-145)
[2020-05-18 09:00] VITALS: BP 110/72
--- NOTE | 2020-05-18 10:15 | Consultation ---
Consult Note Consult Note GYNECOLOGY CONSULTATIONS REPORT CC: Vaginal discharge, pelvic pain (now resolved) HPI: Patient is a 24yo G0 who presented to the ED with 2d history of abdominal pain. Admitted with presumed diagnosis of acute appendicitis, and started on empiric antibiotics. Per chart review, [employer] consulted for r/o PID. Admitted with leukocytosis which has since resolved. Patient reporting vaginal discharge, which has improved since admission. Per patient, discharge was discolored and "clumpy", however this has resolved. Denies any itching, burning, or discomfort. She has been sexually active in the past, but is not currently sexually active. Currently feels well, denies any abdominal pain. PMH: Denies PSH: Denies MEDS: No home meds, currently on Zosyn for empiric treatment of presumed appendicitis ALLERGIES: NKDA OB: G0 [employer]: No prior Pap. LMP ~12d ago. SOC: Marijuana use 2x/week, denies T/E. Lives with mom and with a roommate. Not currently sexually active. FAM: Reports a history of cancer in mom, s/p hysterectomy, unclear what type of cancer but "near her uterus in her stomach". Aunts and uncles with cancer as well, unknown types. VITALS: EXAM: Gen: Well appearing, NAD HEENT: OP clear, MMM Neck: No gross thyromegaly CV: No tachycardia Pulm: Repirations unlabored Abd: Soft, NTND Pelvic: NEFG, moderate physiologic discharge on exam, no malodorous discharge or yeast-like discharge. Bartholin's non-tender but slightly full on right. No uterine or adnexal tenderness, no CMT. Ext: Good ROM, no calf TTP Neuro: Intact grossly LABS: Test 05/16/20 10:00 05/17/20 05:50 05/18/20 01:50 05/18/20 07:13 White Blood Count 19.1 K/UL (4.8-10.8) 8.7 K/UL (4.8-10.8) 4.9 K/UL (4.8-10.8) Red Blood Count 4.45 M/UL (4.20-5.40) 3.73 M/UL (4.20-5.40) 3.76 M/UL (4.20-5.40) Hemoglobin 10.1 G/DL (12.0-16.0) 8.5 G/DL (12.0-16.0) 8.4 G/DL (12.0-16.0) Hematocrit 33.3 % (37.0-47.0) 28.4 % (37.0-47.0) 28.0 % (37.0-47.0) Mean Corpuscular Volume 75 FL (80-99) 76 FL (80-99) 74 FL (80-99) Mean Corpuscular Hemoglobin 22.8 PG (27.0-31.0) 22.7 PG (27.0-31.0) 22.3 PG (27.0-31.0) Mean Corpuscular Hemoglobin Concent 30.5 G/DL (32.0-36.0) 29.8 G/DL (32.0-36.0) 30.0 G/DL (32.0-36.0) Red Cell Distribution Width 16.4 % (11.6-14.8) 16.2 % (11.6-14.8) 16.0 % (11.6-14.8) Platelet Count 292 K/UL (150-450) 220 K/UL (150-450) 226 K/UL (150-450) Mean Platelet Volume 7.8 FL (6.5-10.1) 8.7 FL (6.5-10.1) 9.1 FL (6.5-10.1) Neutrophils (%) (Auto) % (45.0-75.0) 80.7 % (45.0-75.0) 65.4 % (45.0-75.0) Lymphocytes (%) (Auto) % (20.0-45.0) 4.9 % (20.0-45.0) 9.8 % (20.0-45.0) Monocytes (%) (Auto) % (1.0-10.0) 11.3 % (1.0-10.0) 18.3 % (1.0-10.0) Eosinophils (%) (Auto) % (0.0-3.0) 1.9 % (0.0-3.0) 4.4 % (0.0-3.0) Basophils (%) (Auto) % (0.0-2.0) 1.3 % (0.0-2.0) 2.1 % (0.0-2.0) Differential Total Cells Counted 100 Neutrophils % (Manual) 80 % (45-75) Lymphocytes % (Manual) 9 % (20-45) Monocytes % (Manual) 9 % (1-10) Eosinophils % (Manual) 2 % (0-3) Basophils % (Manual) 0 % (0-2) Band Neutrophils 0 % (0-8) Platelet Estimate Adequate Platelet Morphology Normal Hypochromasia 1+ Anisocytosis 1+ Microcytosis 1+ Prothrombin Time 13.0 SEC (9.30-11.50) Prothromb Time International Ratio 1.2 (0.9-1.1) Activated Partial Thromboplast Time 32 SEC (23-33) Urine Color Yellow Urine Appearance Slightly cloudy Urine pH 6 (4.5-8.0) Urine Specific [place] 1.020 (1.005-1.035) Urine Protein 2+ (NEGATIVE) Urine Glucose (UA) Negative (NEGATIVE) Urine Ketones 4+ (NEGATIVE) Urine Blood 2+ (NEGATIVE) Urine Nitrite Negative (NEGATIVE) Urine Bilirubin Negative (NEGATIVE) Urine Urobilinogen Normal MG/DL (0.0-1.0) Urine Leukocyte Esterase 3+ (NEGATIVE) Urine RBC 0-2 /HPF (0 - 2) Urine WBC 15-20 /HPF (0 - 2) Urine Squamous Epithelial Cells Moderate /LPF (NONE/OCC) Urine Bacteria Few /HPF (NONE) Urine HCG, Qualitative Negative (NEGATIVE) Sodium Level 135 MMOL/L (136-145) 141 MMOL/L (136-145) 141 MMOL/L (136-145) Potassium Level 3.5 MMOL/L (3.5-5.1) 3.8 MMOL/L (3.5-5.1) 4.4 MMOL/L (3.5-5.1) Chloride Level 101 MMOL/L (98-107) 108 MMOL/L (98-107) 108 MMOL/L (98-107) Carbon Dioxide Level 24 MMOL/L (21-32) 24 MMOL/L (21-32) 23 MMOL/L (21-32) Anion Gap 10 mmol/L (5-15) 9 mmol/L (5-15) 10 mmol/L (5-15) Blood Urea Nitrogen 9 mg/dL (7-18) 6 mg/dL (7-18) 5 mg/dL (7-18) Creatinine 0.9 MG/DL (0.55-1.30) 0.8 MG/DL (0.55-1.30) 0.7 MG/DL (0.55-1.30) Estimat Glomerular Filtration Rate > 60 mL/min (>60) > 60 mL/min (>60) > 60 mL/min (>60) Glucose Level 69 MG/DL (74-106) 78 MG/DL (74-106) 77 MG/DL (74-106) Calcium Level 9.7 MG/DL (8.5-10.1) 8.2 MG/DL (8.5-10.1) 8.8 MG/DL (8.5-10.1) Magnesium Level 2.0 MG/DL (1.8-2.4) Total Bilirubin 0.6 MG/DL (0.2-1.0) 0.4 MG/DL (0.2-1.0) 0.2 MG/DL (0.2-1.0) Aspartate Amino Transf (AST/SGOT) 20 U/L (15-37) 16 U/L (15-37) 16 U/L (15-37) Alanine Aminotransferase (ALT/SGPT) 16 U/L (12-78) 13 U/L (12-78) 8 U/L (12-78) Alkaline Phosphatase 85 U/L (46-116) 62 U/L (46-116) 58 U/L (46-116) Total Protein 8.3 G/DL (6.4-8.2) 6.6 G/DL (6.4-8.2) 6.6 G/DL (6.4-8.2) Albumin 3.7 G/DL (3.4-5.0) 2.9 G/DL (3.4-5.0) 2.8 G/DL (3.4-5.0) Globulin 4.6 g/dL 3.7 g/dL 3.8 g/dL Albumin/Globulin Ratio 0.8 (1.0-2.7) 0.8 (1.0-2.7) 0.7 (1.0-2.7) Lipase 67 U/L (73-393) Urine Opiates Screen Negative (NEGATIVE) Urine Barbiturates Screen Negative (NEGATIVE) Phencyclidine (PCP) Screen Negative (NEGATIVE) Urine Amphetamines Screen Negative (NEGATIVE) Urine Benzodiazepines Screen Negative (NEGATIVE) Urine Cocaine Screen Negative (NEGATIVE) Urine Marijuana (THC) Screen Positive (NEGATIVE) Erythrocyte Sedimentation Rate 48 MM/HR (0-20) 59 MM/HR (0-20) C-Reactive Protein, Quantitative 12.9 mg/dL (0.00-0.90) 7.2 mg/dL (0.00-0.90) IMAGING: CT A/P w/contrast: FINDINGS: Lung bases: Unremarkable. No mass. No consolidation. ABDOMEN: Liver: Unremarkable. No mass. Gallbladder and bile ducts: Unremarkable. No calcified stones. No ductal dilation. Pancreas: Unremarkable. No mass. No ductal dilation. Spleen: Unremarkable. No splenomegaly. Adrenals: Unremarkable. No mass. Kidneys and ureters: Upper pole left renal hypodensities that are too small to characterize, but most likely reflect cysts. No hydronephrosis. Stomach and bowel: No obstruction or perforation. PELVIS: Appendix: Borderline in caliber measuring up to 7 mm in diameter. Distal fecalith. No clear periappendiceal inflammatory changes, but there is little adjacent fat to illustrate such changes. Bladder: Unremarkable. No mass. Reproductive: 1.1 cm cystic lesion to the rightward vaginal introitus, consistent with Bartholin cyst. ABDOMEN and PELVIS: Intraperitoneal space: Unremarkable. No free air. No significant fluid collection. Bones/joints: No acute fracture. No dislocation. Soft tissues: Unremarkable. Vasculature: Unremarkable. No abdominal aortic aneurysm. Lymph nodes: Unremarkable. No enlarged lymph nodes. IMPRESSION: Appendix is borderline in caliber, measuring up to 7 mm. Distal fecalith. No clear periappendiceal inflammatory changes, but there is little adjacent fat to illustrate such changes. Overall, exam is equivocal for appendicitis. Upper pole left renal hypodensities are too small to characterize, but most likely reflect cysts. No hydronephrosis. 1.1 cm Bartholin cyst to the rightward vaginal introitus. Assessment/Plan 24yo with vaginal discharge (resolved per patient), no exam findings concerning for PID - Negative CMT, no adnexal or uterine tenderness. No clinical evidence of PID - Vaginal discharge improved per patient - If recurs, patient instructed to try OTC Monistat 3 or Monistat 7, given that "clumpy" discharge could have been consistent with yeast - Normal physiologic discharge on exam today - Bartholin's cyst on imaging, small on exam today - recommend Sitz baths (conservative management) - Patient is due for routine [employer] exam, recommend follow up with [employer] for Pap and routine testing Thanks for this interesting consult. Signed: MD Emeterio Kay Carla M.D. May 18, 2020 10:15
[2020-05-18 12:00] VITALS: BP 118/71
--- NOTE | 2020-05-18 12:32 | Surgery Progress Note ---
Surgery Progress Note Subjective Additional Comments Patient seen and examined bedside today. Seen by P[employer]MAN [employer] REPA[employer]ER case discussed. Patient is afebrile hemodynamic stable and labs have improved. Patient's exam is significantly improved. Currently no pain no nausea fever chills hungry. Long discussion with the patient at bedside regards her care and care plan. PULLMAN CAR REPAIRER does not feel that this is PID given clinical situation and their input is appreciated. Patient noted to have UTI. Patient's CT again reviewed and care plan and case discussed. Currently no abdominal tenderness peritonitis or rebound. Is significantly improved. Given this discussed considerations for diagnostic laparoscopy versus continuing current medical management. Patient has decided to continue with current medical management and hold off on surgical intervention. Objective Last 24 Hour Vital Signs Date Time Temp Pulse Resp B/P (MAP) Pulse Ox O2 Delivery O2 Flow Rate FiO2 05/18/20 09:00 97.8 74 18 110/72 (85) 100 05/18/20 04:00 98.6 56 18 105/56 (72) 98 05/18/20 00:00 98.0 67 18 114/55 (74) 99 05/17/20 21:00 Room Air 05/17/20 20:00 98.9 67 18 110/69 (83) 100 05/17/20 15:55 98.2 73 18 109/61 (77) 98 I&O Intake and Output 05/17/20 05/18/20 19:00 07:00 Intake Total 815.0 ml 1380 ml Balance 815.0 ml 1380 ml Intake Oral 480 ml 480 ml IV Total 335.0 ml 900 ml # Voids 5 2 Cardiovascular: RSR Respiratory: clear Abdomen: soft, flat, non-tender, present bowel sounds, non-distended Extremities: no edema, no tenderness, no cyanosis Laboratory Tests Test 05/18/20 01:50 05/18/20 07:13 Chlamydia trachomatis RNA Pending Neisseria gonorrhoeae RNA Pending White Blood Count 4.9 K/UL (4.8-10.8) Red Blood Count 3.76 M/UL (4.20-5.40) L Hemoglobin 8.4 G/DL (12.0-16.0) L Hematocrit 28.0 % (37.0-47.0) L Mean Corpuscular Volume 74 FL (80-99) L Mean Corpuscular Hemoglobin 22.3 PG (27.0-31.0) L Mean Corpuscular Hemoglobin Concent 30.0 G/DL (32.0-36.0) L Red Cell Distribution Width 16.0 % (11.6-14.8) H Platelet Count 226 K/UL (150-450) Mean Platelet Volume 9.1 FL (6.5-10.1) Neutrophils (%) (Auto) 65.4 % (45.0-75.0) Lymphocytes (%) (Auto) 9.8 % (20.0-45.0) L Monocytes (%) (Auto) 18.3 % (1.0-10.0) H Eosinophils (%) (Auto) 4.4 % (0.0-3.0) H Basophils (%) (Auto) 2.1 % (0.0-2.0) H Erythrocyte Sedimentation Rate 59 MM/HR (0-20) H Sodium Level 141 MMOL/L (136-145) Potassium Level 4.4 MMOL/L (3.5-5.1) Chloride Level 108 MMOL/L (98-107) H Carbon Dioxide Level 23 MMOL/L (21-32) Anion Gap 10 mmol/L (5-15) Blood Urea Nitrogen 5 mg/dL (7-18) L Creatinine 0.7 MG/DL (0.55-1.30) Estimat Glomerular Filtration Rate > 60 mL/min (>60) Glucose Level 77 MG/DL (74-106) Calcium Level 8.8 MG/DL (8.5-10.1) Total Bilirubin 0.2 MG/DL (0.2-1.0) Aspartate Amino Transf (AST/SGOT) 16 U/L (15-37) Alanine Aminotransferase (ALT/SGPT) 8 U/L (12-78) L Alkaline Phosphatase 58 U/L (46-116) C-Reactive Protein, Quantitative 7.2 mg/dL (0.00-0.90) H Total Protein 6.6 G/DL (6.4-8.2) Albumin 2.8 G/DL (3.4-5.0) L Globulin 3.8 g/dL Albumin/Globulin Ratio 0.7 (1.0-2.7) L Plan Problems: (1) UTI (urinary tract infection) (2) Acute appendicitis Assessment & Plan: 24F possible appendicitis. afebrile, HD stable. wbc 19k. uti. LLQ, midline lower abd, and RLQ discomfort on deep palpation no peritonitis. CT reviewed. long discussion with patient at bedside. clinical condition, labs, and ct reviewed. exam reviewed. when standing and moving no pain. no peritoneal signs. possible early acute appy but not definitive. discussed diagnostic laparoscopy with patient discussed serial abdominal exams decided to monitor clinically for next 24h. if not resolved will plan for diagnostic laparoscopy possible appendectomy. if resolved will monitor non operatively thank you will follow with recs and exam am labs possible PID Vice President [employer] consult discussed with mom and patient at bedside. offered diagnostic laparoscopy vs medical management. they would like to hold off on surgery to see how she does with abx okay for diet npo p mn Seen by [employer] RE[employer]ER case discussed. Patient is afebrile hemodynamic stable and labs have improved. Patient's exam is significantly improved. Currently no pain no nausea fever chills hungry. Long discussion with the patient at bedside regards her care and care plan. P[employer]MAN [employer] REPAIRER does not feel that this is PID given clinical situation and their input is appreciated. Patient noted to have UTI. Patient's CT again reviewed and care plan and case discussed. Currently no abdominal tenderness peritonitis or rebound. Is significantly improved. Given this discussed considerations for diagnostic laparoscopy versus continuing current medical management. Patient has decided to continue with current medical management and hold off on surgical intervention. okay for diet as tolerated Nabeel Wade May 18, 2020 12:32
[2020-05-18 16:00] VITALS: BP 106/70
--- NOTE | 2020-05-18 19:10 | NUR ---
NURSE HAND-OFF: Important Events on Shift: no significant or acute events noted Patient Status: full code, stable condition Diet: regular, vegan Pending Orders: [] Pending Results/Labs:[] Pending MD notification:[] Latest Vital Signs: Temperature 98.0 , Pulse 64 , B/P 106 /70 , Respiratory Rate 18 , O2 SAT 100 , Room Air, O2 Flow Rate . Vital Sign Comment: [] Latest Rodriguez Fall Score: 20 Fall Risk: Low Risk Safety Measures: Call light Within Reach, Bed Alarm Zone 1, Side Rails Side Rails x2, Bed position Low and Locked. Fall Precautions: Yellow Socks Yellow Gown Door Sign Patient Fall Education Report given to Hazel Renee RN.
--- NOTE | 2020-05-18 19:30 | NUR ---
NURSE NOTES: Patient sitting on bed, alert and oriented x4, on room air, no complaints of SOB nor pain. IV access on the right forearm running NS @ 75cc/hr. Instructed to use call light for assistance. Bed in lowest and lock engaged. Will continue plan of care.
--- NOTE | 2020-05-18 19:59 | Consultation ---
DATE OF CONSULTATION: 05/18/2020 INFECTIOUS DISEASES CONSULTATION CONSULTING PHYSICIAN: Kareem Schreiber MD PRIMARY ATTENDING PHYSICIAN: Bud Nieves MD REASON FOR CONSULTATION: Pelvic pain, suspected appendicitis, and UTI. HISTORY OF PRESENT ILLNESS: This is a 24-year-old female admitted on May 16 because of abdominal pain for 2 days and had nausea, dysuria, had leukocytosis of 19.1, and had some vaginal discharge. PAST MEDICAL HISTORY: Not significant. ALLERGIES: No known drug allergies. MEDICATIONS: Getting Zosyn, sodium chloride, Zofran, morphine. SOCIAL HISTORY: Single. Not sexually active woman now. Smokes marijuana. Denies alcohol abuse. Lives with family. REVIEW OF SYSTEMS: No fever. No chills. No nausea. No vomiting. The pressure sensation in the pelvis has gone. The patient has no dysuria. PHYSICAL EXAMINATION: VITAL SIGNS: Temperature is 97.4, pulse 67, blood pressure is 118/71. GENERAL APPEARANCE: No acute distress. Seems to have normal weight. HEAD AND NECK: [place] conjunctivae. HEART: Normal rate. LUNGS: Clear. ABDOMEN: Soft, nontender. EXTREMITIES: No edema. NEUROLOGIC: She is awake, alert, oriented x3. LABORATORY AND DIAGNOSTIC DATA: WBC 4.9, hemoglobin 8.4, hematocrit 28, platelets 226. Sodium 141, potassium 4.4, chloride 108, bicarb 23, BUN 10, creatinine 0.5. Urine toxicology was positive for marijuana. Gonorrhea and chlamydia test is pending. Urine culture showed mixed adi. CT scan of the abdomen and pelvis showed borderline appendix measuring up to 7 mm, distal fecalith not clear, periappendiceal inflammatory changes, Bartholin cyst. IMPRESSION: Leukocytosis is resolved, abdominal pain, questionable acute appendicitis, has pyuria, has Bartholin cyst, and has anemia. RECOMMENDATION: The patient was seen by Director Of Music Therapy. There is no exam finding concerning for PID. Continue Zosyn. We will follow up the cultures. At the end of my exam, I thank Dr. Nieves for involving me in the care of this patient. Kareem Schreiber M.D. : Jayme JOB#: [id number] CC: MARTIN
[2020-05-18 20:00] VITALS: BP 99/65
--- NOTE | 2020-05-18 20:19 | General Progress Note ---
Subjective ROS Limited/Unobtainable: Yes Allergies: Coded Allergies: No Known Allergies (Unverified , 05/16/20) Objective Last 24 Hour Vital Signs Date Time Temp Pulse Resp B/P (MAP) Pulse Ox O2 Delivery O2 Flow Rate FiO2 05/18/20 16:00 98.0 64 18 106/70 (82) 100 05/18/20 12:00 97.4 67 18 118/71 (87) 97 05/18/20 09:00 Room Air 05/18/20 09:00 97.8 74 18 110/72 (85) 100 05/18/20 04:00 98.6 56 18 105/56 (72) 98 05/18/20 00:00 98.0 67 18 114/55 (74) 99 05/17/20 21:00 Room Air Intake and Output 05/17/20 05/18/20 19:00 07:00 Intake Total 815.0 ml 1380 ml Balance 815.0 ml 1380 ml Intake Oral 480 ml 480 ml IV Total 335.0 ml 900 ml # Voids 5 2 Laboratory Tests 05/18/20 01:50: Chlamydia trachomatis RNA [Pending], Neisseria gonorrhoeae RNA [Pending] 05/18/20 07:13: White Blood Count 4.9, Red Blood Count 3.76L, Hemoglobin 8.4L, Hematocrit 28.0L, Mean Corpuscular Volume 74L, Mean Corpuscular Hemoglobin 22.3L, Mean Corpuscular Hemoglobin Concent 30.0L, Red Cell Distribution Width 16.0H, Platelet Count 226, Mean Platelet Volume 9.1, Neutrophils (%) (Auto) 65.4, Lymphocytes (%) (Auto) 9.8L, Monocytes (%) (Auto) 18.3H, Eosinophils (%) (Auto) 4.4H, Basophils (%) (Auto) 2.1H, Erythrocyte Sedimentation Rate 59H, Sodium Level 141, Potassium Level 4.4, Chloride Level 108H, Carbon Dioxide Level 23, Anion Gap 10, Blood Urea Nitrogen 5L, Creatinine 0.7, Estimat Glomerular Filtration Rate > 60, Glucose Level 77, Calcium Level 8.8, Total Bilirubin 0.2, Aspartate Amino Transf (AST/SGOT) 16, Alanine Aminotransferase (ALT/SGPT) 8L, Alkaline Phosphatase 58, C-Reactive Protein, Quantitative 7.2H, Total Protein 6.6, Albumin 2.8L, Globulin 3.8, Albumin/Globulin Ratio 0.7L Height (Feet): 5 Height (Inches): 5.00 Weight (Pounds): 160 Assessment/Plan Problem List: (1) UTI (urinary tract infection) ICD Codes: N39.0 - Urinary tract infection, site not specified SNOMED: 01401133 (2) Acute appendicitis ICD Codes: K35.80 - Unspecified acute appendicitis SNOMED: 88847857 Status: progressing Assessment/Plan: monitor uti r/o PID dr greene team is consulted to r/o PID abx per Bud Porras MD May 18, 2020 20:19
--- NOTE | 2020-05-18 21:58 | General Progress Note ---
Subjective Allergies: Coded Allergies: No Known Allergies (Unverified , 05/16/20) Subjective above noted pain better was seen by PROTOCOL OFFICER wants to avoid surgery Objective Last 24 Hour Vital Signs Date Time Temp Pulse Resp B/P (MAP) Pulse Ox O2 Delivery O2 Flow Rate FiO2 05/18/20 20:33 Room Air 05/18/20 20:00 98.0 68 18 99/65 (76) 100 05/18/20 16:00 98.0 64 18 106/70 (82) 100 05/18/20 12:00 97.4 67 18 118/71 (87) 97 05/18/20 09:00 Room Air 05/18/20 09:00 97.8 74 18 110/72 (85) 100 05/18/20 04:00 98.6 56 18 105/56 (72) 98 05/18/20 00:00 98.0 67 18 114/55 (74) 99 Intake and Output 05/17/20 05/18/20 19:00 07:00 Intake Total 815.0 ml 1380 ml Balance 815.0 ml 1380 ml Intake Oral 480 ml 480 ml IV Total 335.0 ml 900 ml # Voids 5 2 Laboratory Tests 05/18/20 01:50: Chlamydia trachomatis RNA [Pending], Neisseria gonorrhoeae RNA [Pending] 05/18/20 07:13: White Blood Count 4.9, Red Blood Count 3.76L, Hemoglobin 8.4L, Hematocrit 28.0L, Mean Corpuscular Volume 74L, Mean Corpuscular Hemoglobin 22.3L, Mean Corpuscular Hemoglobin Concent 30.0L, Red Cell Distribution Width 16.0H, Platelet Count 226, Mean Platelet Volume 9.1, Neutrophils (%) (Auto) 65.4, Lymphocytes (%) (Auto) 9.8L, Monocytes (%) (Auto) 18.3H, Eosinophils (%) (Auto) 4.4H, Basophils (%) (Auto) 2.1H, Erythrocyte Sedimentation Rate 59H, Sodium Level 141, Potassium Level 4.4, Chloride Level 108H, Carbon Dioxide Level 23, Anion Gap 10, Blood Urea Nitrogen 5L, Creatinine 0.7, Estimat Glomerular Filtration Rate > 60, Glucose Level 77, Calcium Level 8.8, Total Bilirubin 0.2, Aspartate Amino Transf (AST/SGOT) 16, Alanine Aminotransferase (ALT/SGPT) 8L, Alkaline Phosphatase 58, C-Reactive Protein, Quantitative 7.2H, Total Protein 6.6, Albumin 2.8L, Globulin 3.8, Albumin/Globulin Ratio 0.7L Height (Feet): 5 Height (Inches): 5.00 Weight (Pounds): 160 Objective WDWN NCAT supple CTA RR abd soft, mild R>L lower abd TTP, improved exam c/t yesterday no edema Assessment/Plan Status: progressing Assessment/Plan: Assessment - 3 days of abd pain, leukocytosis - improving on abx - diffuse abd TTP with mild peritoneal signs, most TTP R>L lower abd - improving on abx - vaginal discharge - not PID per PROTOCOL OFFICER - presumed resolving Appy Recommendations - Continue Abx - medical management - PROTOCOL OFFICER consult noted - surgical follow up - f/u urine GC/Chlamydia RNA Kristofer Liz MD May 18, 2020 21:58
[2020-05-19 04:00] VITALS: BP 98/60
--- NOTE | 2020-05-19 07:05 | NUR ---
NURSE HAND-OFF: Important Events on Shift: Patient Status: stable Diet: Pending Orders: Pending Results/Labs: Pending MD notification: Latest Vital Signs: Temperature 98.1 , Pulse 61 , B/P 98 /60 , Respiratory Rate 18 , O2 SAT 99 , Room Air, O2 Flow Rate . Vital Sign Comment: Latest Rodriguez Fall Score: 20 Fall Risk: Low Risk Safety Measures: Call light Within Reach, Bed Alarm Zone 1, Side Rails Side Rails x2, Bed position Low and Locked. Fall Precautions: Yellow Socks Yellow Gown Door Sign Patient Fall Education Report given to GIAN Watts.
[2020-05-19 07:06] LABS: BASOPHILS % (AUTO) 1.8 % (0.0-2.0); EOSINOPHILS % (AUTO) 7.4 % (0.0-3.0); HEMATOCRIT 31.4 % (37.0-47.0); HEMOGLOBIN 8.9 G/DL (12.0-16.0); LYMPHOCYTES % (AUTO) 20.5 % (20.0-45.0); MEAN CORPUSCULAR VOLUME 80 FL (80-99); MONOCYTES % (AUTO) 10.7 % (1.0-10.0); NEUTROPHILS % (AUTO) 59.6 % (45.0-75.0); PLATELET COUNT 257 K/UL (150-450); RED BLOOD COUNT 3.95 M/UL (4.20-5.40); RED CELL DISTRIBUTION WIDTH 17.7 % (11.6-14.8); WHITE BLOOD COUNT 3.6 K/UL (4.8-10.8)
[2020-05-19 07:08] LABS: ALANINE AMINOTRANSFERASE 12 U/L (12-78); ALBUMIN/GLOBULIN RATIO 0.7 (1.0-2.7); ALKALINE PHOSPHATASE 56 U/L (46-116); ANION GAP 11 mmol/L (5-15); ASPARTATE AMINO TRANSFERASE 17 U/L (15-37); BILIRUBIN,TOTAL 0.3 MG/DL (0.2-1.0); BLOOD UREA NITROGEN 4 mg/dL (7-18); CALCIUM 8.9 MG/DL (8.5-10.1); CARBON DIOXIDE 22 MMOL/L (21-32); CHLORIDE 109 MMOL/L (98-107); CREATININE 0.8 MG/DL (0.55-1.30); POTASSIUM 3.7 MMOL/L (3.5-5.1); SODIUM 142 MMOL/L (136-145)
[2020-05-19 08:00] VITALS: BP 112/67
--- NOTE | 2020-05-19 08:00 | NUR ---
NURSE NOTES: Patient awake and alert and oriented.IV fluids infusing as ordered.Patient sitting up in bed and eating breakfast.Call light6 within reach.
[2020-05-19] MEDS: Piperacillin/Tazobactam 3.375 GM in NS 110 ML IVPB SCH (08:59)
--- NOTE | 2020-05-19 11:43 | General Progress Note ---
Subjective ROS Limited/Unobtainable: Yes Allergies: Coded Allergies: No Known Allergies (Unverified , 05/16/20) Objective Last 24 Hour Vital Signs Date Time Temp Pulse Resp B/P (MAP) Pulse Ox O2 Delivery O2 Flow Rate FiO2 05/19/20 09:12 Room Air 05/19/20 08:00 98.0 57 16 112/67 (82) 100 05/19/20 04:00 98.1 61 18 98/60 (73) 99 05/18/20 20:33 Room Air 05/18/20 20:00 98.0 68 18 99/65 (76) 100 05/18/20 16:00 98.0 64 18 106/70 (82) 100 05/18/20 12:00 97.4 67 18 118/71 (87) 97 Intake and Output 05/18/20 05/19/20 19:00 07:00 Intake Total 765 ml 1285 ml Balance 765 ml 1285 ml Intake Oral 690 ml 240 ml IV Total 75 ml 1045 ml # Voids 4 2 Laboratory Tests 05/19/20 06:15: White Blood Count 3.6L, Red Blood Count 3.95L, Hemoglobin 8.9L, Hematocrit 31.4L , Mean Corpuscular Volume 80#, Mean Corpuscular Hemoglobin 22.5L, Mean Corpuscular Hemoglobin Concent 28.3L, Red Cell Distribution Width 17.7H, Platelet Count 257, Mean Platelet Volume 7.8, Neutrophils (%) (Auto) 59.6, Lymphocytes (%) (Auto) 20.5, Monocytes (%) (Auto) 10.7H, Eosinophils (%) (Auto) 7.4H, Basophils (%) (Auto) 1.8, Erythrocyte Sedimentation Rate 45H, Sodium Level 142, Potassium Level 3.7, Chloride Level 109H, Carbon Dioxide Level 22, Anion Gap 11, Blood Urea Nitrogen 4L, Creatinine 0.8, Estimat Glomerular Filtration Rate > 60, Glucose Level 89, Calcium Level 8.9, Total Bilirubin 0.3, Aspartate Amino Transf (AST/SGOT) 17, Alanine Aminotransferase (ALT/SGPT) 12, Alkaline Phosphatase 56, C-Reactive Protein, Quantitative 4.4H, Total Protein 7.1, Albumin 3.0L, Globulin 4.1, Albumin/Globulin Ratio 0.7L Height (Feet): 5 Height (Inches): 5.00 Weight (Pounds): 160 Assessment/Plan Problem List: (1) UTI (urinary tract infection) ICD Codes: N39.0 - Urinary tract infection, site not specified SNOMED: 73212295 (2) Acute appendicitis ICD Codes: K35.80 - Unspecified acute appendicitis SNOMED: 01826959 Status: progressing Assessment/Plan: uti dc home if cleared by dr berrios no abdominal pain no fever no leukocytosis Bud Nieves MD May 19, 2020 11:43
--- NOTE | 2020-05-19 11:57 | Surgery Progress Note ---
Surgery Progress Note Subjective Symptoms: improved, pain absent, tolerating diet, voiding well, passing flatus, BM Objective Last 24 Hour Vital Signs Date Time Temp Pulse Resp B/P (MAP) Pulse Ox O2 Delivery O2 Flow Rate FiO2 05/19/20 09:12 Room Air 05/19/20 08:00 98.0 57 16 112/67 (82) 100 05/19/20 04:00 98.1 61 18 98/60 (73) 99 05/18/20 20:33 Room Air 05/18/20 20:00 98.0 68 18 99/65 (76) 100 05/18/20 16:00 98.0 64 18 106/70 (82) 100 05/18/20 12:00 97.4 67 18 118/71 (87) 97 I&O Intake and Output 05/18/20 05/19/20 19:00 07:00 Intake Total 765 ml 1285 ml Balance 765 ml 1285 ml Intake Oral 690 ml 240 ml IV Total 75 ml 1045 ml # Voids 4 2 Cardiovascular: RSR Respiratory: clear Abdomen: soft, flat, non-tender, present bowel sounds, non-distended Extremities: no edema, no tenderness, no cyanosis Laboratory Tests Test 05/19/20 06:15 White Blood Count 3.6 K/UL (4.8-10.8) L Red Blood Count 3.95 M/UL (4.20-5.40) L Hemoglobin 8.9 G/DL (12.0-16.0) L Hematocrit 31.4 % (37.0-47.0) L Mean Corpuscular Volume 80 FL (80-99) # Mean Corpuscular Hemoglobin 22.5 PG (27.0-31.0) L Mean Corpuscular Hemoglobin Concent 28.3 G/DL (32.0-36.0) L Red Cell Distribution Width 17.7 % (11.6-14.8) H Platelet Count 257 K/UL (150-450) Mean Platelet Volume 7.8 FL (6.5-10.1) Neutrophils (%) (Auto) 59.6 % (45.0-75.0) Lymphocytes (%) (Auto) 20.5 % (20.0-45.0) Monocytes (%) (Auto) 10.7 % (1.0-10.0) H Eosinophils (%) (Auto) 7.4 % (0.0-3.0) H Basophils (%) (Auto) 1.8 % (0.0-2.0) Erythrocyte Sedimentation Rate 45 MM/HR (0-20) H Sodium Level 142 MMOL/L (136-145) Potassium Level 3.7 MMOL/L (3.5-5.1) Chloride Level 109 MMOL/L (98-107) H Carbon Dioxide Level 22 MMOL/L (21-32) Anion Gap 11 mmol/L (5-15) Blood Urea Nitrogen 4 mg/dL (7-18) L Creatinine 0.8 MG/DL (0.55-1.30) Estimat Glomerular Filtration Rate > 60 mL/min (>60) Glucose Level 89 MG/DL (74-106) Calcium Level 8.9 MG/DL (8.5-10.1) Total Bilirubin 0.3 MG/DL (0.2-1.0) Aspartate Amino Transf (AST/SGOT) 17 U/L (15-37) Alanine Aminotransferase (ALT/SGPT) 12 U/L (12-78) Alkaline Phosphatase 56 U/L (46-116) C-Reactive Protein, Quantitative 4.4 mg/dL (0.00-0.90) H Total Protein 7.1 G/DL (6.4-8.2) Albumin 3.0 G/DL (3.4-5.0) L Globulin 4.1 g/dL Albumin/Globulin Ratio 0.7 (1.0-2.7) L Plan Problems: (1) UTI (urinary tract infection) (2) Acute appendicitis Assessment & Plan: 24F possible appendicitis. afebrile, HD stable. wbc 19k. uti. LLQ, midline lower abd, and RLQ discomfort on deep palpation no peritonitis. CT reviewed. long discussion with patient at bedside. clinical condition, labs, and ct reviewed. exam reviewed. when standing and moving no pain. no peritoneal signs. possible early acute appy but not definitive. discussed diagnostic laparoscopy with patient discussed serial abdominal exams decided to monitor clinically for next 24h. if not resolved will plan for diagnostic laparoscopy possible appendectomy. if resolved will monitor non operatively thank you will follow with recs and exam am labs possible PID Crop Roller consult discussed with mom and patient at bedside. offered diagnostic laparoscopy vs medical management. they would like to hold off on surgery to see how she does with abx okay for diet npo p mn Seen by BEEF TRIMMER case discussed. Patient is afebrile hemodynamic stable and labs have improved. Patient's exam is significantly improved. Currently no pain no nausea fever chills hungry. Long discussion with the patient at bedside regards her care and care plan. BEEF TRIMMER does not feel that this is PID given clinical situation and their input is appreciated. Patient noted to have UTI. Patient's CT again reviewed and care plan and case discussed. Currently no abdominal tenderness peritonitis or rebound. Is significantly improved. Given this discussed considerations for diagnostic laparoscopy versus continuing current medical management. Patient has decided to continue with current medical management and hold off on surgical intervention. okay for diet as tolerated d/c plan abx as per ID f/u outpatient with pcp return if worsening condition or pain, fever, discharge Nabeel Wade May 19, 2020 11:57
[2020-05-19 12:00] VITALS: BP 116/69
--- NOTE | 2020-05-19 12:34 | Infectious Diseases Prog Note ---
Assessment/Plan Assessment/Plan IMPRESSION: Leukocytosis is resolved, Abdominal pain, resolved appendicitis, Pyuria, Bartholin cyst, Anemia. RECOMMENDATION: Discontinue Zosyn. Can be discharged without antibiotic Will f/u chlamydia & Gonorrhea test Subjective ROS Limited/Unobtainable: No Constitutional: Reports: no symptoms Respiratory: Reports: no symptoms Cardiovascular: Reports: no symptoms Gastrointestinal/Abdominal: Reports: no symptoms Genitourinary: Reports: no symptoms Allergies: Coded Allergies: No Known Allergies (Unverified , 05/16/20) Objective Last 24 Hour Vital Signs Date Time Temp Pulse Resp B/P (MAP) Pulse Ox O2 Delivery O2 Flow Rate FiO2 05/19/20 09:12 Room Air 05/19/20 08:00 98.0 57 16 112/67 (82) 100 05/19/20 04:00 98.1 61 18 98/60 (73) 99 05/18/20 20:33 Room Air 05/18/20 20:00 98.0 68 18 99/65 (76) 100 05/18/20 16:00 98.0 64 18 106/70 (82) 100 Height (Feet): 5 Height (Inches): 5.00 Weight (Pounds): 160 HEENT: mucous membranes moist Respiratory/Chest: lungs clear Cardiovascular: normal rate Abdomen: soft, non tender Extremities: no edema Neurologic/Psychiatric: alert, oriented x 3, responsive Laboratory Tests Test 05/19/20 06:15 White Blood Count 3.6 K/UL (4.8-10.8) L Red Blood Count 3.95 M/UL (4.20-5.40) L Hemoglobin 8.9 G/DL (12.0-16.0) L Hematocrit 31.4 % (37.0-47.0) L Mean Corpuscular Volume 80 FL (80-99) # Mean Corpuscular Hemoglobin 22.5 PG (27.0-31.0) L Mean Corpuscular Hemoglobin Concent 28.3 G/DL (32.0-36.0) L Red Cell Distribution Width 17.7 % (11.6-14.8) H Platelet Count 257 K/UL (150-450) Mean Platelet Volume 7.8 FL (6.5-10.1) Neutrophils (%) (Auto) 59.6 % (45.0-75.0) Lymphocytes (%) (Auto) 20.5 % (20.0-45.0) Monocytes (%) (Auto) 10.7 % (1.0-10.0) H Eosinophils (%) (Auto) 7.4 % (0.0-3.0) H Basophils (%) (Auto) 1.8 % (0.0-2.0) Erythrocyte Sedimentation Rate 45 MM/HR (0-20) H Sodium Level 142 MMOL/L (136-145) Potassium Level 3.7 MMOL/L (3.5-5.1) Chloride Level 109 MMOL/L (98-107) H Carbon Dioxide Level 22 MMOL/L (21-32) Anion Gap 11 mmol/L (5-15) Blood Urea Nitrogen 4 mg/dL (7-18) L Creatinine 0.8 MG/DL (0.55-1.30) Estimat Glomerular Filtration Rate > 60 mL/min (>60) Glucose Level 89 MG/DL (74-106) Calcium Level 8.9 MG/DL (8.5-10.1) Total Bilirubin 0.3 MG/DL (0.2-1.0) Aspartate Amino Transf (AST/SGOT) 17 U/L (15-37) Alanine Aminotransferase (ALT/SGPT) 12 U/L (12-78) Alkaline Phosphatase 56 U/L (46-116) C-Reactive Protein, Quantitative 4.4 mg/dL (0.00-0.90) H Total Protein 7.1 G/DL (6.4-8.2) Albumin 3.0 G/DL (3.4-5.0) L Globulin 4.1 g/dL Albumin/Globulin Ratio 0.7 (1.0-2.7) L Current Medications Medications (Trade) Dose Ordered Sig/Yemi Route PRN Reason Start Time Stop Time Status Last Admin Dose Admin Acetaminophen (Tylenol) 650 mg Q4H PRN ORAL Temp >100.5 05/16/20 13:45 06/15/20 13:44 Dextrose (Dextrose 50%) 25 ml Q30M PRN IV Hypoglycemia 05/16/20 13:45 08/14/20 13:44 Dextrose (Dextrose 50%) 50 ml Q30M PRN IV Hypoglycemia 05/16/20 13:45 08/14/20 13:44 Morphine Sulfate (Morphine Sulfate) 2 mg EVERY 3 HOURS PRN IVP Moderate Pain (Pain Scale 4-6) 05/16/20 13:45 05/23/20 13:44 05/17/20 06:23 Ondansetron HCl (Zofran) 4 mg Q6H PRN IVP Nausea & Vomiting 05/16/20 13:45 06/15/20 13:44 Piperacillin Sod/ Tazobactam Sod 3.375 gm/Sodium Chloride 110 ml @ 27.5 mls/hr Q8H IVPB 05/17/20 09:00 05/24/20 08:59 05/19/20 08:59 Sodium Chloride 1,000 ml @ 75 mls/hr [id number] IVLG 05/16/20 14:45 06/15/20 14:44 05/18/20 21:00 Kareem Schreiber MD May 19, 2020 12:34
--- NOTE | 2020-05-19 12:43 | NUR ---
NURSE NOTES: DR Howell here to see patient. Dr Schreiber state patient can be discharge no discharge antibiotic needed. state he will follow upon pending labs.
--- NOTE | 2020-05-19 13:56 | NUR ---
NURSE NOTES: Patient discharge at this time with discharge instructions given Patient aware she will need to follow up with primary care doctor and latent print examiner.IV removed and ID hospital band removed.Patient has her personal belongings and cellphone..Patient Mother is here to take patient home.Patient accompany down stairs.
--- NOTE | 2020-05-19 15:01 | General Progress Note ---
Subjective Allergies: Coded Allergies: No Known Allergies (Unverified , 05/16/20) Subjective above noted pain much better Objective Last 24 Hour Vital Signs Date Time Temp Pulse Resp B/P (MAP) Pulse Ox O2 Delivery O2 Flow Rate FiO2 05/19/20 12:00 97.6 78 16 116/69 (85) 100 05/19/20 09:12 Room Air 05/19/20 08:00 98.0 57 16 112/67 (82) 100 05/19/20 04:00 98.1 61 18 98/60 (73) 99 05/18/20 20:33 Room Air 05/18/20 20:00 98.0 68 18 99/65 (76) 100 05/18/20 16:00 98.0 64 18 106/70 (82) 100 Intake and Output 05/18/20 05/19/20 19:00 07:00 Intake Total 765 ml 1285 ml Balance 765 ml 1285 ml Intake Oral 690 ml 240 ml IV Total 75 ml 1045 ml # Voids 4 2 Laboratory Tests 05/19/20 06:15: White Blood Count 3.6L, Red Blood Count 3.95L, Hemoglobin 8.9L, Hematocrit 31.4L , Mean Corpuscular Volume 80#, Mean Corpuscular Hemoglobin 22.5L, Mean Corpuscular Hemoglobin Concent 28.3L, Red Cell Distribution Width 17.7H, Platelet Count 257, Mean Platelet Volume 7.8, Neutrophils (%) (Auto) 59.6, Lymphocytes (%) (Auto) 20.5, Monocytes (%) (Auto) 10.7H, Eosinophils (%) (Auto) 7.4H, Basophils (%) (Auto) 1.8, Erythrocyte Sedimentation Rate 45H, Sodium Level 142, Potassium Level 3.7, Chloride Level 109H, Carbon Dioxide Level 22, Anion Gap 11, Blood Urea Nitrogen 4L, Creatinine 0.8, Estimat Glomerular Filtration Rate > 60, Glucose Level 89, Calcium Level 8.9, Total Bilirubin 0.3, Aspartate Amino Transf (AST/SGOT) 17, Alanine Aminotransferase (ALT/SGPT) 12, Alkaline Phosphatase 56, C-Reactive Protein, Quantitative 4.4H, Total Protein 7.1, Albumin 3.0L, Globulin 4.1, Albumin/Globulin Ratio 0.7L Height (Feet): 5 Height (Inches): 5.00 Weight (Pounds): 160 Objective WDWN NCAT supple CTA RR abd soft,NT no edema Assessment/Plan Status: progressing Assessment/Plan: Assessment - 3 days of abd pain, leukocytosis - improving on abx - diffuse abd TTP with mild peritoneal signs, most TTP R>L lower abd - improving on abx - vaginal discharge - not PID per CHIEF GREEN OFFICER - presumed resolving Appy Recommendations - Continue Abx - medical management - CHIEF GREEN OFFICER consult noted - surgical follow up - f/u urine GC/Chlamydia RNA - d/c planning Kristofer Liz MD May 19, 2020 15:01
--- NOTE | 2020-05-20 12:38 | Discharge Summary ---
Discharge Summary Discharge Summary _ Date of admission: 05/16/2020 Date of discharge: 05/19/[address] Nieves History of Present Illness and Brief Hospital Course Ms. Zimmer is a 24-year-old female with no significant past medical history who presented to ER for evaluation of abdominal pain x2 days. She also complained of dysuria. Patient was given IV fluids, fentanyl, Pepcid, and Zofran. The urinalysis was consistent with UTI. Patient was given Rocephin. CT of abdomen/pelvis demonstrated appendix with distal fecalith which was concerning for appendicitis. A Bartholin cyst was also demonstrated. Patient also presented with vaginal discharge was yellow clumps. Patient was tested for gonorrhea and chlamydia but the results were pending by the time of discharge. Patient unlikely had PID given her clinical presentation, history and physical. Patient remained afebrile and hemodynamically stable. Patient's presentation and labs improved. Patient no longer complained of abdominal tenderness. Patient decided to continue with medical management and hold off on surgical i ntervention. Patient began tolerating diet. Patient was medically stable for discharge and was discharged home on 05/19/2020. Patient was instructed to follow-up with PCP within 1 week upon discharge. Patient was instructed to return to ED if her symptoms do not improve or worsen. Consultants: Infectious disease Dr. Schreiber Gynecology Dr. Storm Gastroenterology Dr. Liz Surgery Dr. Wade Discharge Condition Improved and stable Discharge Activity As tolerated Discharge Diet Regular Final diagnoses Acute appendicitis Leukocytosis Vaginal discharge Gram-positive UTI Pyuria Bartholin cyst Anemia I have been assigned to dictate discharge summary for this account. I was not involved in the patient's management Ludwig David May 20, 2020 12:38
--- NOTE | 2020-05-20 14:23 | NUR ---
[employer]/FAXED TO [employer] #[phone] fax# [phone]
== END 2020-05-19 14:00 | disposition home or self-care (01) | DRG 254 ==
LOC: EMR 10:05 → 4E 12:57 → EDBEDREQ 17:57
DX: K35.80 Unspecified acute appendicitis (principal); N39.0 Urinary tract infection, site not specified; N75.0 Cyst of Bartholin's gland; N89.8 Other specified noninflammatory disorders of vagina; D64.9 Anemia, unspecified
CPT/HCPCS: 36415; 71045; 74177; 80053; 80307; 81003; 81025; 83690; 83735; 85007; 85025; 85610; 85651; 85730; 86140; 86850; 86900; 86901; 87086; 87491; 87590; 96361; 96365; 96375; 99285; J2405; J7030

== ENCOUNTER 2020-05-26 13:08 | Emergency (ER) | payer MEDICAID ==
[~2020-05-26] VITALS: Ht 165.1 cm; Wt 60.8 kg
--- NOTE | 2020-05-26 14:30 | NUR ---
rxamined by dr ortez meds given as orderd
[2020-05-26] MEDS ORDERED: cefTRIAXone 500mg Inj ONE (14:37)
[2020-05-26] MEDS ORDERED: DOXYCYCLINE MO100 MG ORAL ×3 (14:37→15:02)
[2020-05-26] MEDS ORDERED: Lidocaine 1% MPF 10mg/ml 5ml INJ ONE (14:45)
[2020-05-26] MEDS ORDERED: cefTRIAXone 500mg Inj IM ONE (14:45)
--- NOTE | 2020-05-26 15:20 | NUR ---
discharged home with instruction and rx follow up with pmd
[2020-05-26 15:31] VITALS: BP 124/82
[2020-05-26 15:34] VITALS: BP 124/82
== END 2020-05-26 15:34 | disposition home or self-care (01) ==
LOC: EMR 14:10
DX: Z20.2 Contact with and (suspected) exposure to infections with a predominantly sexual mode of transmission (principal)
CPT/HCPCS: 96372; J0696; Z7502; 99283